=== PATIENT | male | born 1985 | race American Indian/Alaskan Native ===

== ENCOUNTER 2019-04-30 02:29 | Emergency (ER) | payer SELFPAY ==
[2019-04-30 02:37] VITALS: BP 135/55
--- NOTE | 2019-04-30 03:27 | XRay Report ---
RIGHT SHOULDER, 3 VIEWS 04/30/2019 INDICATION / CLINICAL INFORMATION: shoulder pain. COMPARISON: None available. FINDINGS: No glenohumeral fracture or dislocation. There are degenerative changes in the acromioclavicular joint. Soft tissue calcification is demonstrated overlying the distal clavicle. Signer Name: Mushtaq Sofia MD Signed: 04/30/2019 3:22 AM Workstation Name: [id number]
[2019-04-30] MEDS ORDERED: ULTRAM PO ONE (04:08)
--- NOTE | 2019-04-30 04:12 | Emergency Department Report ---
ED Upper Extremity Inj HPI - General Chief Complaint: Extremity Injury, Upper Stated Complaint: RIGHT SHOULDER PAIN Time Seen by Provider: 04/30/19 03:56 Source: patient, EMS Mode of arrival: Ambulatory Limitations: No Limitations - History of Present Illness Initial Comments: This 33-year-old male who presents to the emergency room with right shoulder pain for 3 weeks. Patient states he injured his right shoulder while at work 3 weeks ago he was seen at [place] and told he had a rotator cuff tear. He wasn't able to follow up with Orthopedic surgeon. Patient states he fell while walking home today and reinjured right shoulder. He reports pain is worse with movement. He denies swelling, numbness, paresthesias, warmth to the area, or erythema. MD Complaint: Injury to:: right, shoulder Onset/Timin -: week(s) Other Extremity Injury: Shoulder: Right Other Injuries: none Handedness: right Place: outdoors Severity scale (0 -10): 9 Improves With: none Worsens With: movement of extremity Context: fall Associated Symptoms: denies other symptoms - Related Data Previous Rx's Medication Instructions Recorded Last Taken Type Ibuprofen [Motrin 800 MG tab] 800 mg PO Q8HR PRN #20 tablet 04/30/19 Unknown Rx Allergies Allergy/AdvReac Type Severity Reaction Status Date / Time No Known Allergies Allergy Unverified 04/30/19 02:37 ED Review of Systems ROS: Stated complaint: RIGHT SHOULDER PAIN Other details as noted in HPI Constitutional: denies: chills, fever Respiratory: denies: cough, shortness of breath, wheezing Cardiovascular: denies: chest pain, palpitations Gastrointestinal: denies: abdominal pain, nausea, diarrhea Musculoskeletal: arthralgia (right shoulder pain). denies: back pain, joint swelling Skin: denies: rash, lesions Neurological: denies: headache, weakness, paresthesias Psychiatric: denies: anxiety, depression ED Past Medical Hx - Past Medical History Previous Medical History?: No - Surgical History Past Surgical History?: Yes Additional Surgical History: ortho sarath thumbs and right arm - Social History Smoking Status: Current Every Day Smoker Substance Use Type: None - Medications Home Medications: Home Medications Medication Instructions Recorded Confirmed Last Taken Type Ibuprofen [Motrin 800 MG tab] 800 mg PO Q8HR PRN #20 tablet 04/30/19 Unknown Rx ED Physical Exam - General Limitations: No Limitations General appearance: alert, in no apparent distress - Respiratory Respiratory exam: Present: normal lung sounds bilaterally. Absent: respiratory distress - Cardiovascular Cardiovascular Exam: Present: regular rate, normal rhythm. Absent: systolic murmur, diastolic murmur, rubs, gallop - GI/Abdominal GI/Abdominal exam: Present: soft, normal bowel sounds - Expanded Upper Extremity Exam Right Shoulder Exam: Present: tenderness over AC joint, other (weakness on external rotation). Absent: full ROM (limited ROM secondary pain), swelling, abrasion, laceration, ecchymosis, deformity, dislocation, erythema Upper Arm exam: Present: normal inspection, full ROM Elbow exam: Present: normal inspection, full ROM Forearm Wrist exam: Present: normal inspection, full ROM Hand Wrist exam: Present: normal inspection, full ROM Neuro motor exam: Present: wrist extension intact, thumb opposition intact, thumb IP flexion intact, thumb adduction intact, fingers 2-5 abduction intact Neurosensory exam: Present: radial nerve intact, ulnar nerve intact, median nerve intact Vascular: Present: normal capillary refill, radial pulse - Neurological Exam Neurological exam: Present: alert, oriented X3 - Psychiatric Psychiatric exam: Present: normal affect, normal mood - Skin Skin exam: Present: warm, dry, intact, normal color. Absent: rash ED Course Vital Signs 04/30/19 02:33 Temperature 98.3 F Pulse Rate 77 Respiratory 16 Rate Blood Pressure 135/55 O2 Sat by Pulse 98 Oximetry ED Medical Decision Making - Radiology Data Radiology results: report reviewed RIGHT SHOULDER, 3 VIEWS 04/30/2019 INDICATION / CLINICAL INFORMATION: shoulder pain. COMPARISON: None available. FINDINGS: No glenohumeral fracture or dislocation. There are degenerative changes in the acromioclavicular joint. Soft tissue calcification is demonstrated overlying the distal clavicle. - Medical Decision Making Patient was examined by me. Vitals are normal and patient is in no acute distress. Given toradol while in the ER. Obtained a x-ray of right shoulder. No glenohumeral fracture or dislocation. There are degenerative changes in the acromioclavicular joint. Soft tissue calcification is demonstrated overlying the distal clavicle. Patient is aware of rotator cuff injury by [facility] and never followed up. Referral to Orthopedic for continued care. Start ibuprofen for pain. Patient discharged home in stable condition. Follow up with PCP in 2- 3 days. Critical care attestation.: If time is entered above; I have spent that time in minutes in the direct care of this critically ill patient, excluding procedure time. ED Disposition Clinical Impression: Acute pain of right shoulder Rotator cuff injury Qualifiers: Encounter type: initial encounter Laterality: right Qualified Code(s): S46.001A - Unspecified injury of muscle(s) and tendon(s) of the rotator cuff of right shoulder, initial encounter Disposition: TO HOME OR SELFCARE Is pt being admited?: No Does the pt Need Aspirin: No Condition: Stable Instructions: Rotator Cuff Injury (ED) Additional Instructions: Rest Use ice or heat on affected area for 20 minutes and off for 2 hours. Take pain medication as needed for pain. Follow up with Primary Care Provider in 2-3 days. Prescriptions: Ibuprofen [Motrin 800 MG tab] 800 mg PO Q8HR PRN #20 tablet PRN Reason: Pain , Severe (7-10) Referrals: KALEN TEAGUE MD [Staff Physician] - 3-5 Days [facility] [Provider Group] - 3-5 Days [facility] [Provider Group] - 3-5 Days Forms: Work/School Release Form(ED) Time of Disposition: 04:21
== END 2019-04-30 05:05 | disposition home or self-care (01) ==
LOC: ED 02:29
DX: S46.001A Unspecified injury of muscle(s) and tendon(s) of the rotator cuff of right shoulder, initial encounter (principal); F17.200 Nicotine dependence, unspecified, uncomplicated; W19.XXXA Unspecified fall, initial encounter; Y93.89 Activity, other specified; Y92.89 Other specified places as the place of occurrence of the external cause; Y99.8 Other external cause status